=== PATIENT | female | born 1960 | race Caucasian/White ===

== ENCOUNTER → 2016-12-29 | Outpatient (CLI) | payer BC ==
--- NOTE | ~2016-12-29 | MY11 ---
[facility] A Service of [facility] RADIOLOGY TEXT RESULTS PATIENT: KALEN FERNANDO LOCATION: [facility] : 56 UNIT #: [id number] AGE: [address]: Jona Dominguez MD SEX: F ORDER DR: [id number] [facility] [address] [place], [place] [address] [id number] MR#: [id number] Acc #: [id number] NAME: KALEN FERNANDO : 1960 SEX: F STUDY DATE/TIME: 12/29/2016 10:06 UNIT: [facility] ROOM: STUDY DESCRIPTION: MY Mammogram Screening Dig Bear Attending Physician: Jona Dominguez M.D. Ordering Physician: Jona Dominguez M.D. Primary Care Physician: Maya Kim M.D. 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 Annual screening. COMPARISON Mammograms date to 06/24/2011 with most recent 12/02/2015. FINDINGS Digital imaging of each breast was completed utilizing screening protocol. Surgical skin markers were placed at the lumpectomy site and sentinel node dissection. Review includes FDA-approved CAD device. Breast parenchyma is partially fatty replaced bilaterally. There is no breast mass identified. I see no interval occurring microcalcifications. There is a stellate distortion again noted at the lumpectomy site central left breast slightly medial to the nipple line. There is also mild residual skin thickening on the left reflecting previous whole breast radiation. IMPRESSION Negative mammogram. Stable post lumpectomy and radiation changes left breast. Annual screening recommended. Patients over the age of 40 are entered into a reminder system with target due date for the next mammogram. A result letter will also be sent to the patient. BIRADS: 1 Negative Dictated by... Lexa Granger M.D. [facility] A Service of [facility] RADIOLOGY TEXT RESULTS PATIENT: KALEN FERNANDO LOCATION: [facility] : 56 UNIT #: [id number] AGE: [address]: Jona Dominguez MD SEX: F ORDER DR: THIS IS AN ELECTRONICALLY VERIFIED REPORT Lexa Granger M.D. at 12/29/2016 2:32 PM Tonio TD: 12/29/2016 12:51 JOB #: [id number] MEDICAL IMAGING REPORT Page 1 of 1 COPY
== END | disposition home or self-care (01) ==
LOC: CWCC 12-08 10:30
DX: Z12.31 Encounter for screening mammogram for malignant neoplasm of breast (principal); Z85.3 Personal history of malignant neoplasm of breast; Z98.890 Other specified postprocedural states
CPT/HCPCS: G0202